=== PATIENT | female | born 1985 | race Two or more races ===

== ENCOUNTER 2016-12-29 10:36 | Emergency (ER) | payer OTHER ==
[2016-12-29] MEDS ORDERED: FAMOTIDINE 20 MG TABLET PO STA (10:56)
[2016-12-29] MEDS ORDERED: DEXAMETHASONE 10 MG/ML VIAL PO STA (10:56)
[2016-12-29] MEDS ORDERED: CETIRIZINE 10 MG TABLET PO STA (10:56)
[2016-12-29] MEDS ORDERED: CETIRIZINE 10 MG TABLET ONE (11:01)
[2016-12-29] MEDS ORDERED: DEXAMETHASONE 10 MG/ML VIAL ONE (11:02)
[2016-12-29] MEDS ORDERED: FAMOTIDINE 20 MG TABLET ONE (11:02)
== END 2016-12-29 11:30 | disposition home or self-care (01) ==
DX: L50.9 Urticaria, unspecified (principal)
CPT/HCPCS: 99283; A9270

== ENCOUNTER 2016-12-31 11:59 | Emergency (ER) | payer OTHER ==
[2016-12-31] MEDS ORDERED: diphenhydrAMINE 25 MG CAPSULE PO ONE (12:18)
[2016-12-31] MEDS ORDERED: CHERRY SYRUP 10 ML UDC PO ONE (12:19)
[2016-12-31] MEDS ORDERED: FAMOTIDINE 20 MG TABLET ONE (12:19)
[2016-12-31] MEDS ORDERED: DEXAMETHASONE 10 MG/ML VIAL ONE (12:19)
--- NOTE | 2016-12-31 12:20 | ED Physician Documentation ---
History of Present Illness - Stated complaint Stated Complaint: ALLERGIC REACTION - Chief complaint Chief Complaint: Allergic Rx - Additonal information Additional information: hx from pt 31 f seen by me few days ago for hives uncertain etiology rx zyrtec and prednisone and rec allergist/pediatric pulmonologist referral she got better then went outside for a walk last night and all sx returned plus facial swelling and neck tightness Review of Systems Constitutional: denies: Fever Ears: denies: Ear pain Throat: denies: Sore throat (throat tightness) Cardiac: denies: Chest pain / pressure Respiratory: reports: Dyspnea GI: denies: Abdominal Pain, Nausea, Vomiting, Diarrhea Endocrine: denies: Easy bruising / bleeding Immunocompromised: denies: Immunocompromised PD PAST MEDICAL HISTORY - Past Medical History Past 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 Other Past Medical History: PCOS - Past Surgical History /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: Other HEENT: Tonsil/Adenoidectomy - Present Medications Home Medications: Ambulatory Orders Medication Instructions Recorded Confirmed Cetirizine [ZyrTEC] 10 mg PO DAILY #10 tablet 12/29/16 12/31/16 raNITIdine [Zantac] 150 mg PO BID #6 tablet 12/29/16 12/31/16 Epinephrine [Epipen 2-Damian] 0.3 mg IJ ONCE PRN #1 unit 12/31/16 diphenhydrAMINE [Benadryl] 25 mg PO Q6H #20 capsule 12/31/16 predniSONE [Deltasone] 40 mg PO DAILY 5 Days 12/31/16 raNITIdine [Zantac] 150 mg PO BID #10 tablet 12/31/16 - Allergies Allergies/Adverse Reactions: Allergies Allergy/AdvReac Type Severity Reaction Status Date / Time chocolate flavor Allergy Hives Verified 12/31/16 12:07 - Social History Does the pt smoke?: No Smoking Status: Never smoker Does the pt drink ETOH?: No Does the pt have substance abuse?: No - Immunizations Immunizations are current?: Yes - POLST Patient has POLST: No PD ED PE NORMAL - Vitals Vital signs reviewed: Yes - HEENT HEENT: Other (face swollen but lips tongue uvula no neck swelling) - Neck Neck: Supple, no meningeal sign - Cardiac Cardiac: RRR - Respiratory Respiratory: No respiratory distress, Clear bilaterally - Derm Derm: Other (diffuse hives) - Neuro Neuro: Alert and oriented X 3 Results - Vitals Vitals: Vital Signs - 24 hr 12/31/16 12/31/16 12/31/16 12:03 12:10 12:53 Temperature 36.5 C Heart Rate 85 69 67 Respiratory 19 18 23 Rate Blood Pressure 111/67 114/77 117/64 O2 Saturation 97 99 100 12/31/16 12/31/16 13:15 13:49 Temperature 36.5 C Heart Rate 70 76 Respiratory 13 18 Rate Blood Pressure 107/76 104/74 O2 Saturation 98 99 Oxygen O2 Source Room air PD MEDICAL DECISION MAKING - ED course ED course: pt observed, felt better, not completely resolved but better and felt ready to go home Departure - Departure Disposition: Home, Self Care Clinical Impression: Urticaria Condition: Good Instructions: ED Allergic Reaction General Other Follow-Up: Kait Balbuena MD [Primary Care Provider] - (Monday for a recheck and a referral to an allergist/pediatric pulmonologist ) Prescriptions: diphenhydrAMINE [Benadryl] 25 mg PO Q6H #20 capsule predniSONE [Deltasone] 40 mg PO DAILY 5 Days Epinephrine [Epipen 2-Damian] 0.3 mg IJ ONCE PRN #1 unit PRN Reason: Anaphylaxis raNITIdine [Zantac] 150 mg PO BID #10 tablet Discharge Date/Time: 12/31/16 13:50
[2016-12-31] MEDS: diphenhydrAMINE 25 MG CAPSULE PO STA (12:21)
[2016-12-31] MEDS: FAMOTIDINE 20 MG TABLET PO STA (12:21)
[2016-12-31] MEDS: DEXAMETHASONE 10 MG/ML VIAL PO STA (12:21)
[2016-12-31 13:50] VITALS: BP 104/74
== END 2016-12-31 13:50 | disposition home or self-care (01) ==
LOC: ED 11:59
DX: L50.9 Urticaria, unspecified (principal); E28.2 Polycystic ovarian syndrome
CPT/HCPCS: 99283

== ENCOUNTER 2017-01-11 06:13 | Day surgery (SDC) | payer OTHER ==
[2017-01-11] MEDS ORDERED: LACTATED RINGERS 1,000 ML IV ONE ×2 (06:55→08:41)
[2017-01-11] MEDS ORDERED: ONDANSETRON 4 MG/2 ML VIAL IVP ONE (07:45)
[2017-01-11] MEDS ORDERED: MIDAZOLAM 2 MG/2 ML VIAL IVP ONE (07:45)
[2017-01-11] MEDS ORDERED: fentaNYL 100 MCG/2 ML VIAL IVP ONE (07:45)
[2017-01-11] MEDS ORDERED: LIDOCAINE-MPF 2% 5 ML VIAL IM ONE (07:45)
[2017-01-11] MEDS ORDERED: DEXAMETHASONE 4 MG/ML VIAL IVP ONE (07:45)
[2017-01-11] MEDS ORDERED: PROPOFOL 200 MG/20 ML VIAL IVP ONE (07:45)
[2017-01-11] MEDS ORDERED: KETOROLAC 15 MG/ML VIAL ONE (08:06)
[2017-01-11] MEDS: fentaNYL 100 MCG/2 ML VIAL ONE ×2 (08:10→08:41)
[2017-01-11] MEDS ORDERED: ONDANSETRON 4 MG/2 ML VIAL ONE (08:18)
== END 2017-01-11 06:14 | disposition home or self-care (01) ==
PROC: 0UDB8ZX Extraction of Endometrium, Via Natural or Artificial Opening Endoscopic, Diagnostic (ICD-10-PCS; 2017-01-11)
PROC: 0UB98ZX Excision of Uterus, Via Natural or Artificial Opening Endoscopic, Diagnostic (ICD-10-PCS; principal; 2017-01-11 07:30)
DX: N84.0 Polyp of corpus uteri (principal); N92.4 Excessive bleeding in the premenopausal period; E66.9 Obesity, unspecified; Z68.41 Body mass index [BMI] 40.0-44.9, adult
CPT/HCPCS: 58558; 81025; J7120

== ENCOUNTER 2017-02-09 09:00 | Outpatient (CLI) | payer OTHER ==
[2017-02-09 19:35] LABS: BASOPHILS % (AUTO) 0.5 %; EOSINOPHILS # (AUTO) 0.1 10^3/uL (0.0-0.7); EOSINOPHILS % (AUTO) 0.8 %; HGB - HEMOGLOBIN 13.7 g/dL (12.0-16.0); LYMPHOCYTES # (AUTO) 2.1 10^3/uL (1.5-3.5); LYMPHOCYTES % (AUTO) 23.6 %; MEAN CORPUSCULAR HEMOGLOBIN 28.8 pg (27.0-31.0); MEAN CORPUSCULAR HGB CONC 31.9 g/dL (32.0-36.0); MEAN CORPUSCULAR VOLUME 90.5 fL (81.0-99.0); MEAN PLATELET VOLUME 11.7 fL (7.9-10.8); MONOCYTES # (AUTO) 0.4 10^3/uL (0.0-1.0); MONOCYTES % (AUTO) 5.1 %; NEUTROPHILS # (AUTO) 6.1 10^3/uL (1.5-6.6); NUCLEATED RED BLOOD CELLS AUTO 0.1 /100WBC; RED BLOOD COUNT 4.75 10^6/uL (4.20-5.40); RED CELL DISTRIBUTION WIDTH 12.8 % (12.0-15.0); UNCORRECTED WHITE BLOOD COUNT 8.7 x10^3/uL; WHITE BLOOD COUNT 8.7 x10^3/uL (4.8-10.8)
[2017-02-09 19:44] LABS: HEMOGLOBIN A1C 0.61 g/dL
[2017-02-09 19:50] LABS: ALBUMIN/GLOBULIN RATIO 1.2 (1.0-2.2); BILIRUBIN,TOTAL 0.7 mg/dL (0.2-1.0); BUN - BLOOD UREA NITROGEN 6 mg/dL (6-20); CALCIUM 9.4 mg/dL (8.5-10.3); CARBON DIOXIDE - CO2 23 mmol/L (21-32); CHLORIDE 104 mmol/L (101-111); CHOL/HDL RATIO 5.2 (<4.4); CHOLESTEROL 203 mg/dL; CREATININE 0.9 mg/dL (0.4-1.0); GFR - MDRD 74 (>89); GLUCOSE 103 mg/dL (70-100); HDL CHOLESTEROL 39 mg/dL; LDL/HDL RATIO 2.5 (<4.4); POTASSIUM 3.8 mmol/L (3.5-5.0); SODIUM 139 mmol/L (135-145); TOTAL PROTEIN 7.6 g/dL (6.7-8.2); TRIGLYCERIDES 331 mg/dL; VLDL CHOLESTEROL 66 mg/dL
== END 2017-02-09 09:01 | disposition home or self-care (01) ==
LOC: LAB.N 09:00
PROVIDERS: ATTEND Internal Medicine
DX: E78.5 Hyperlipidemia, unspecified (principal); E78.2 Mixed hyperlipidemia; E88.81 Metabolic syndrome and other insulin resistance
CPT/HCPCS: 36415; 80050; 80061; 83036

== ENCOUNTER 2017-02-11 00:20 | Emergency (ER) | payer OTHER ==
[2017-02-11 00:29] VITALS: BP 135/87
--- NOTE | 2017-02-11 01:40 | ED Physician Documentation ---
PD HPI LOWER EXT INJURY - Stated complaint Stated Complaint: TOE INJURY - Chief complaint Chief Complaint: Wound - History obtained from History obtained from: Patient - History of Present Illness PD HPI LOW EXT INJURY LOCATION: Right, Toe Type of injury: Blunt / blow Where injury occurred: Home Timing - onset: Enter time (15:00) Timing - details: Abrupt onset Improved by: Rest Worsened by: Moving, Palpating Recently seen: Not recently seen - Additional information Additional information: accidentally struck by her 's boot, striking patient's right 2nd toe and nearly avulsing the toenail (it pulled away from the nailbed but has remained firmly under the proximal nail fold). She c/o pain at the tip of the toe, and has been soaking her foot with the goal of trying to pull the toenail off, although it is unclear why she felt this was necessary. 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, Other HEENT: Tonsil/Adenoidectomy - Present Medications Home Medications: Ambulatory Orders Medication Instructions Recorded Confirmed Epinephrine [Epipen 2-Damian] 0.3 mg IJ ONCE PRN #1 unit 12/31/16 01/11/17 diphenhydrAMINE [Benadryl] 25 mg PO Q6H #20 capsule 12/31/16 01/11/17 Cephalexin [Keflex] 500 mg PO QID #19 capsule 02/11/17 - Allergies Allergies/Adverse Reactions: Allergies Allergy/AdvReac Type Severity Reaction Status Date / Time chocolate flavor Allergy Hives Verified 12/31/16 12:07 - Social History Does the pt smoke?: No Smoking Status: Never smoker Does the pt drink ETOH?: No Does the pt have substance abuse?: No - Immunizations Immunizations are current?: Yes - POLST Patient has POLST: No PD ED PE NORMAL - Vitals Vital signs reviewed: Yes - General General: Alert and oriented X 3, No acute distress, Well developed/nourished - Extremities Extremities: No edema, Other (right foot, second toe: the toenail is in place, loosely adherent to the nailbed at the distal and medial aspects, but firmly in place under proximal nail fold. the nail itself is intact (not broken/cracked) and there is no laceration visualized. Mild tenderness with direct pressure over the nail but no bony tenderness) Results - Vitals Vitals: Vital Signs - 24 hr 02/11/17 00:26 Temperature 36.6 C Heart Rate 78 Respiratory 17 Rate Blood Pressure 135/87 H O2 Saturation 98 Oxygen O2 Source Room air PD MEDICAL DECISION MAKING - ED course Complexity details: considered differential, d/w patient ED course: Steri-strips used to secure nail in place to allow for stenting open the proximal nail fold while new nail starts to grow in. I explained to patient that she will almost certainly lose the nail that is currently in place, but keeping it in place for now should prevent the nail fold from sealing and resulting in an ingrown nail as the new nail grows in. Departure - Departure Disposition: 01 Home, Self Care Clinical Impression: Nail avulsion, toe Condition: Good Instructions: ED Avulsion Nail Complete Follow-Up: Kait Balbuena MD [Primary Care Provider] - (3-5 days for recheck of the injury) Prescriptions: Cephalexin [Keflex] 500 mg PO QID #19 capsule Discharge Date/Time: 02/11/17 02:05
[2017-02-11] MEDS ORDERED: CEPHALEXIN 250 MG CAPSULE PO STA (01:59)
[2017-02-11] MEDS ORDERED: CEPHALEXIN 250 MG CAPSULE PO ONE (01:59)
== END 2017-02-11 02:05 | disposition home or self-care (01) ==
LOC: ED 00:20
DX: S91.204A Unspecified open wound of right lesser toe(s) with damage to nail, initial encounter (principal); W20.8XXA Other cause of strike by thrown, projected or falling object, initial encounter; Y92.019 Unspecified place in single-family (private) house as the place of occurrence of the external cause
CPT/HCPCS: 99283; A9270

== ENCOUNTER 2017-08-01 15:09 | Outpatient (CLI) | payer OTHER ==
[2017-08-01 12:52] LABS: BASOPHILS % (AUTO) 0.3 %; EOSINOPHILS # (AUTO) 0.1 10^3/uL (0.0-0.7); EOSINOPHILS % (AUTO) 1.1 %; HCT - HEMATOCRIT 40.1 % (37.0-47.0); HGB - HEMOGLOBIN 13.4 g/dL (12.0-16.0); LYMPHOCYTES # (AUTO) 2.4 10^3/uL (1.5-3.5); LYMPHOCYTES % (AUTO) 27.8 %; MEAN CORPUSCULAR HEMOGLOBIN 28.4 pg (27.0-31.0); MEAN CORPUSCULAR HGB CONC 33.3 g/dL (32.0-36.0); MEAN CORPUSCULAR VOLUME 85.3 fL (81.0-99.0); MEAN PLATELET VOLUME 10.3 fL (7.9-10.8); MONOCYTES # (AUTO) 0.4 10^3/uL (0.0-1.0); MONOCYTES % (AUTO) 4.9 %; NEUTROPHILS # (AUTO) 5.6 10^3/uL (1.5-6.6); NEUTROPHILS % (AUTO) 65.9 %; NUCLEATED RED BLOOD CELLS AUTO 0.1 /100WBC; RED BLOOD COUNT 4.69 10^6/uL (4.20-5.40); RED CELL DISTRIBUTION WIDTH 12.8 % (12.0-15.0); UNCORRECTED WHITE BLOOD COUNT 8.6 x10^3/uL; WHITE BLOOD COUNT 8.6 x10^3/uL (4.8-10.8)
[2017-08-01 13:15] LABS: HEMOGLOBIN A1C 0.57 g/dL
[2017-08-01 13:21] LABS: THYROID STIMULATING HORMONE 1.18 uIU/mL (0.34-5.60)
[2017-08-01 13:27] LABS: ALBUMIN/GLOBULIN RATIO 1.1 (1.0-2.2); BILIRUBIN,TOTAL 0.5 mg/dL (0.2-1.0); BUN - BLOOD UREA NITROGEN 8 mg/dL (6-20); CALCIUM 8.9 mg/dL (8.5-10.3); CARBON DIOXIDE - CO2 26 mmol/L (21-32); CHLORIDE 104 mmol/L (101-111); CHOL/HDL RATIO 4.9 (<4.4); CHOLESTEROL 186 mg/dL; CREATININE 0.8 mg/dL (0.4-1.0); GFR - MDRD 84 (>89); GLUCOSE 96 mg/dL (70-100); HDL CHOLESTEROL 38 mg/dL; LDL/HDL RATIO 2.8 (<4.4); POTASSIUM 3.9 mmol/L (3.5-5.0); SODIUM 136 mmol/L (135-145); TOTAL PROTEIN 7.7 g/dL (6.7-8.2); TRIGLYCERIDES 200 mg/dL; VLDL CHOLESTEROL 40 mg/dL
[2017-08-01 13:49] LABS: FOLLICLE STIMULATING HORMONE 6.6 mIU/mL
[2017-08-01 13:50] LABS: LUTEINIZING HORMONE 11.61 mIU/mL
== END 2017-08-01 15:10 | disposition home or self-care (01) ==
LOC: LAB.N 15:09
PROVIDERS: ATTEND Internal Medicine
DX: E78.1 Pure hyperglyceridemia (principal); E03.9 Hypothyroidism, unspecified; R25.2 Cramp and spasm; E88.81 Metabolic syndrome and other insulin resistance
CPT/HCPCS: 36415; 80050; 80061; 83001; 83002; 83036; 83735; 84403